=== PATIENT | male | born 1960 | race American Indian/Alaskan Native ===

== ENCOUNTER 2020-06-26 06:10 | Day surgery (SDC) | payer BC ==
[~2020-06-26 06:10] MED LIST: LACTATED RINGERS 1,000 ML IV SCH; MIDAZOLAM 2 MG/2 ML INJ IV NR
[2020-06-26] MEDS ORDERED: BACTERIOSTATIC SODIUM CHLORIDE 0.9% 30 ML VIAL INFILTRATI ONE ×2 (06:11→06:48)
[2020-06-26] MEDS ORDERED: ceFAZolin/STERILE WATER 2 GM/20 ML SYRINGE IV NR (07:23)
[2020-06-26] MEDS ORDERED: ONDANSETRON 4 MG/2 ML INJ IV PRN (07:33)
[2020-06-26] MEDS ORDERED: fentaNYL 100 MCG/2 ML INJ IV PRN (07:33)
[2020-06-26] MEDS ORDERED: HYDROcodone/ACETAMINOPHEN 5-325 MG TAB PO PRN (07:33)
--- NOTE | 2020-06-26 07:33 | Anesthesia Consultation ---
Anesthesia Consult and Med Hx Date of service: 06/26/20 - Airway Anesthetic Teeth Evaluation: Good ROM Head & Neck: Adequate Mental/Hyoid Distance: Adequate Mallampati Class: Class III Intubation Access Assessment: Possibly Difficult - Pulmonary Exam CTA: Yes - Cardiac Exam Cardiac Exam: RRR - Pre-Operative Health Status ASA Pre-Surgery Classification: ASA1 Proposed Anesthetic Plan: General - Pulmonary Hx Smoking: No Hx Respiratory Symptoms: No Hx Sleep Apnea: No (TRAV PRE SCREEN LOW RISK) - Cardiovascular System Hx Hypertension: No - Central Nervous System CVA: No - Gastrointestinal Hx Gastroesophageal Reflux Disease: Yes - Endocrine Hx Renal Disease: No (BPH) Hx Liver Disease: No Hx Insulin Dependent Diabetes: No Hx Non-Insulin Dependent Diabetes: No Hx Thyroid Disease: No - Other Systems Hx Obesity: No - Additional Comments Anesthesia Medical History Comments: No hx anesthetic complications.
--- NOTE | 2020-06-26 07:33 | Anesthesia Day of Surgery ---
Anesthesia Day of Surgery - Day of Surgery Patient Examined: Yes Patient H&P Reviewed: Yes Patient is NPO: Yes
[2020-06-26] MEDS ORDERED: dexAMETHasone 20 MG/5 ML VIAL ONE (07:42)
[2020-06-26] MEDS ORDERED: propofoL 200 MG/20 ML VIAL IV ONE (07:42)
[2020-06-26] MEDS ORDERED: LIDOCAINE MPF (2%) 20 MG/1 ML VIAL 5 ML ONE (07:42)
[2020-06-26] MEDS ORDERED: PHENYLEPHRINE/NS 1,000 MCG/10 ML SYRINGE (OR USE) IV ONE (07:42)
[2020-06-26] MEDS ORDERED: GLYCOPYRROLATE 0.4 MG/2 ML INJ ONE (07:42)
[2020-06-26] MEDS ORDERED: MIDAZOLAM 2 MG/2 ML INJ ONE (08:06)
[2020-06-26] MEDS ORDERED: WATER FOR IRRIG STERILE 2000 ML IR ONE (08:23)
--- NOTE | 2020-06-26 08:41 | Post Operative Note ---
Date of procedure: 06/26/20 Pre-op diagnosis: bph Post-op diagnosis: same Findings: bilobar Procedure: rezum Anesthesia: GETA Surgeon: JESUS DUNCAN Estimated blood loss: none Pathology: none Condition: stable Disposition: PACU
--- NOTE | 2020-06-26 08:42 | Discharge Summary ---
Short Stay Discharge Plan Activity: other (no straining ) Weight Bearing Status: Full Weight Bearing Diet: regular, low fat, low cholesterol, low salt Special Instructions: other Durable Medical Equipment Needed Upon Discharge: other (home wotyh catheter ) Follow up with: ANATOLY GUTIÉRREZ MD [Primary Care Provider] - 7 Days JESUS DUNCAN MD [Staff Physician] - 7 Days
--- NOTE | 2020-06-26 09:32 | Operative Report ---
PREOPERATIVE DIAGNOSIS: Bladder outlet obstruction. POSTOPERATIVE DIAGNOSIS: Bladder outlet obstruction. PROCEDURE: Cystoscopy, Rezum therapy. SURGEON: Dr. Contreras. ANESTHESIA: General. FINDINGS: This is a gentleman who has a bladder outlet obstruction. He has high voiding pressures and he has a high AUA score. He now presents for treatment. DESCRIPTION OF PROCEDURE: The patient was brought to the operating room and was placed on the operating table. Following induction of anesthesia, placed in lithotomy position, prepped and draped in the usual sterile fashion. Cystourethroscopy showed a slightly narrowed bulbomembranous junction, which was easily bypassed with the cystoscope. There was bilobar hypertrophy. There was no significant middle lobe. At this point, ____ it should also be noted that there was a 1+ trabeculation. After the Rezum was primed, two sticks on the right, one on the left. The patient tolerated the procedure well. A Coude catheter was easily inserted, urine was clear, brought to recovery in stable condition. JOB# [id number] JUANITA/JILLIAN
--- NOTE | 2020-06-26 10:08 | Post Anesthesia Evaluation ---
- Post Anesthesia Evaluation Patient Participated: Yes Airway Patent: Yes Stable Respiratory Function: Yes Nausea/Vomiting: No Temp > 96.8F: Yes Pain Manageable: Yes Adequeate Hydration: Yes Anesthesia Complications: No
[2020-06-26 10:23] VITALS: BP 120/61
== END 2020-06-26 10:35 | disposition home or self-care (01) ==
LOC: OR 06:10
PROVIDERS: ATTEND Urology
DX: N32.89 Other specified disorders of bladder (principal); K21.9 Gastro-esophageal reflux disease without esophagitis; N40.0 Benign prostatic hyperplasia without lower urinary tract symptoms; Z72.89 Other problems related to lifestyle; Z79.899 Other long term (current) drug therapy; Z88.5 Allergy status to narcotic agent; Z98.890 Other specified postprocedural states
CPT/HCPCS: 53854; A4217; J0690; J1100; J2250; J2370; J2405; J2704; J3010; J7120